=== PATIENT | female | born 1995 | race Caucasian/White ===

== ENCOUNTER 2018-02-12 23:18 | Emergency (ER) | payer OTHER ==
[~2018-02-12] VITALS: Ht 172.7 cm; Wt 64.9 kg
[2018-02-13 00:07] VITALS: BP 123/78
--- NOTE | 2018-02-13 00:39 | NUR ---
EMT AT BEDSIDE FOR WOUND CARE AND DRESSING APPLICATION.
[2018-02-13] MEDS ORDERED: TDAP [DIPH/PERTUSSIS/TET] 0.5 ML VIAL IM ONE ×2 (00:43→01:00)
== END 2018-02-13 00:49 | disposition home or self-care (01) ==
LOC: ER 23:18
DX: T22.20XA Burn of second degree of shoulder and upper limb, except wrist and hand, unspecified site, initial encounter (principal); X10.2XXA Contact with fats and cooking oils, initial encounter; Y93.89 Activity, other specified; Y92.89 Other specified places as the place of occurrence of the external cause; Y99.8 Other external cause status; Z90.89 Acquired absence of other organs
CPT/HCPCS: 90715; A4606; Z7610